=== PATIENT | female | born 2005 | race Caucasian/White ===

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

== ENCOUNTER 2025-01-05 10:50 | Outpatient (CLI) | payer MEDICAID, SELFPAY ==
--- NOTE | 2025-01-05 10:45 | US_ITS ---
PROCEDURE: US OB FOLLOW UP CLINICAL INDICATION: placental location and growth COMPARISON: US US OB /MATERNAL DETAIL from 11/10/2024 US US OB FOLLOW UP from 11/16/2024 US US OB TRANSVAGINAL from 01/05/2025 FINDINGS: Transabdominal sonographic images of the pelvis were obtained. The following parameters are obtained: From her established due date she is 28weeks 3days Viable fetus in the cephalic presentation with an anterior placenta grade 1. Transabdominally the placenta appeared to overlie the internal cervical os. When seen transvaginally the placenta was 7.4 cm away from the internal cervical os. There is a separate dictation for the transvaginal ultrasound. The cervix measures 4.68 cm heart rate: 142bpm bpm. Average ultrasound age 29 weeks 5 days Estimated weight 1379 grams, 3 lb 1 oz BPD: 28weeks 5days, 45 percentile HC: 29weeks 2days, 44 percentile AC: 30weeks 2days, 90 percentile FL: 28weeks 1day, 27 percentile HC/AC: 1.03 FL/BPD: 0.74 FL/AC: 0.2 Growth percentile: Amniotic fluid index: 73 No obvious anomalies evident. profile seen, stomach, bladder, kidneys, three-vessel cord, appear normal. IMPRESSION: 1. Viable fetus in the cephalic presentation with an anterior placenta grade 1. Initially the placenta seen to cover the internal os. A separate transvaginal ultrasound revealed that the placenta was well away from the cervix. 2. Subjectively the fluid appears to be within normal limits. 3. There has been good interval growth with the fetus currently 73rd percentile. The abdominal circumference is 2 weeks ahead. Suggest follow-up for accelerated growth. 4. Limited anatomical scan appears normal. Dictated by: Marcos Kern MD 01/06/2025 06:54 Marcos Kern MD in [facility] 01/06/2025 06:54
--- NOTE | 2025-01-05 10:58 | US_ITS ---
PROCEDURE: US OB TRANSVAGINAL CLINICAL INDICATION: cervical length check COMPARISON: US US OB /MATERNAL DETAIL from 11/10/2024 US US OB FOLLOW UP from 11/16/2024 US US OB FOLLOW UP from 01/05/2025 FINDINGS: Transvaginal sonographic images of the pelvis were obtained. From her last menstrual period she is 28weeks 3days. Viable fetus within the uterine cavity in the cephalic presentation with an anterior placenta grade 1. A previous transabdominal ultrasound today showed that the placenta was overlying the internal cervical os. Transvaginally the placenta has moved away from the internal os after emptying the bladder. The placenta measures 7.4 cm from the internal cervical os. There is no evidence of vascularity near the internal cervical os. The cervix measures 3.90-4.05 cm in length transvaginally. IMPRESSION: 1. Fetus in the cephalic presentation with an anterior placenta grade 1. 2. And earlier transabdominal exam today revealed that the placenta was overlying the internal cervical os. When the patient's bladder was emptied and transvaginal approach was used, the placenta was 7.4 cm away from the internal cervical os. There was no evidence of vascularity near the cervical os. 3. The cervix measures 3.90-4.05 cm in length. Dictated by: Marcos Kern MD 01/06/2025 07:00 Marcos Kern MD in [facility] 01/06/2025 07:00
[2025-01-05 12:47] LABS: Hematocrit 28.4 % (37.0-47.0); Hemoglobin 8.5 g/dL (12.2-16.2); Immature Granulocytes % 0.7 %; Mean Corpuscular HGB Conc 29.9 g/dL (31.8-35.4); Mean Corpuscular Hemoglobin 23.3 pg (27.0-31.2); Mean Corpuscular Volume 77.8 fl (81-99); Nucleated Red Blood Cells % 0 %; Platelet Count 194 K/mm3 (142-424); Red Blood Count 3.65 M/mm3 (4.20-5.40); Red Cell Distribution Width-SD 41.3 fL; White Blood Count 8.5 K/mm3 (4.5-13.0)
[2025-01-05 12:57] LABS: Glucose 1 Hour 108 mg/dL (74-100)
[2025-01-05 15:09] LABS: Ferritin 5.38 ng/ml (6.24-137)
[2025-01-05 15:32] LABS: RPR W/RFX Titers Nonreactive (Nonreactive)
== END 2025-01-05 23:59 | disposition home or self-care (01) ==
PROVIDERS: PCP Family Medicine; Visit Provider Obstetrics & Gynecology
DX: O36.63X0 Maternal care for excessive fetal growth, third trimester, not applicable or unspecified (principal); O99.513 Diseases of the respiratory system complicating pregnancy, third trimester; O99.013 Anemia complicating pregnancy, third trimester; J45.909 Unspecified asthma, uncomplicated; D64.9 Anemia, unspecified; Z3A.28 28 weeks gestation of pregnancy; Z36.86 Encounter for antenatal screening for cervical length
CPT/HCPCS: 36415; 76816; 76817; 82728; 82947; 85025; 86592

== ENCOUNTER 2025-01-10 11:08 | Outpatient (CLI) | payer MEDICAID, SELFPAY ==
[2025-01-10 11:21] VITALS: BMI 30.4
[2025-01-10 11:35] LABS: Microscopic, Urine URINE MICROSCOPIC (MICROSCOPIC)
[2025-01-10 11:39] LABS: Bilirubin,Urine Negative (Negative); Color,Urine YELLOW (Yellow); Glucose,Urine (UA) Negative (Negative); Ketones,Urine Negative (Negative); Leukocyte Esterase,Urine Negative (Negative); PH,Urine 6.0 (5.0-8.5); Protein,Urine Negative (Negative); Specific Gravity, Urine 1.020 (1.005-1.030); Urobilinogen,Urine 0.2 EU/dl (0.2)
[2025-01-10 11:53] LABS: Amorphous Sediment,Urine 1+ /lpf; Bacteria,Urine 1+ /lpf
[2025-01-10] MEDS: LACTATED RINGERS 1000ML 1,000 ML 999 ML IV (11:58)
[2025-01-10 12:07] VITALS: BP 125/69; PULSE 95; RESP 17; TEMP 36.9; O2SAT 97; BMI 30.4
== END 2025-01-10 13:50 | disposition home or self-care (01) ==
LOC: OBOUT 11:11 → OB 11:12
PROVIDERS: PCP Family Medicine; Visit Provider Obstetrics & Gynecology
DX: O99.013 Anemia complicating pregnancy, third trimester (principal); Z3A.28 28 weeks gestation of pregnancy
CPT/HCPCS: 59025; 81001; 96360; 99212; G0463; J7120

== ENCOUNTER 2025-01-22 11:20 | Outpatient (CLI) | payer MEDICAID, SELFPAY ==
[2025-01-22 11:40] VITALS: BP 132/59; PULSE 90; RESP 17; TEMP 36.7; O2SAT 99
[2025-01-22] MEDS: IRON SUCROSE COMPLEX 200 MG in 0.9 % SODIUM CHLORIDE 100 ML 220 MG IV (11:40)
[2025-01-22 12:15] VITALS: BP 137/77; PULSE 89; RESP 20; TEMP 36.6; O2SAT 95
== END 2025-01-22 12:24 | disposition home or self-care (01) ==
LOC: INF 11:22
PROVIDERS: PCP Family Medicine; Visit Provider Obstetrics & Gynecology
DX: O99.019 Anemia complicating pregnancy, unspecified trimester (principal); D64.9 Anemia, unspecified; Z3A.00 Weeks of gestation of pregnancy not specified
CPT/HCPCS: 96365; J1756

== ENCOUNTER 2025-01-29 11:25 | Outpatient (CLI) | payer MEDICAID, SELFPAY ==
[2025-01-29 11:47] VITALS: BP 141/66; PULSE 80; RESP 20; TEMP 36.6; O2SAT 99
[2025-01-29] MEDS: IRON SUCROSE COMPLEX 200 MG in 0.9 % SODIUM CHLORIDE 100 ML 220 MG IV (11:47)
[2025-01-29 12:23] VITALS: BP 134/60; PULSE 87; RESP 18
== END 2025-01-29 12:35 | disposition home or self-care (01) ==
LOC: INF 11:30
PROVIDERS: PCP Family Medicine; Visit Provider Obstetrics & Gynecology
DX: O99.019 Anemia complicating pregnancy, unspecified trimester (principal); D64.9 Anemia, unspecified; Z3A.00 Weeks of gestation of pregnancy not specified
CPT/HCPCS: 96365; J1756

== ENCOUNTER 2025-02-04 10:15 | Outpatient (CLI) | payer MEDICAID, SELFPAY ==
--- NOTE | 2025-02-04 10:15 | US_ITS ---
PROCEDURE: US OB BIOPHYSICAL PROFILE CLINICAL INDICATION: accelerated growth COMPARISON: US US OB /MATERNAL DETAIL from 11/10/2024 US US OB FOLLOW UP from 11/16/2024 US US OB FOLLOW UP from 01/05/2025 FINDINGS: Transabdominal sonographic images of the uterus were obtained. From her established due date she is 32weeks 5days. The following parameters are obtained: Viable Fetus in the cephalic presentation with an anterior placenta grade 2. There is an inhomogeneous area of thickness noted retroplacental. It measures up to 8 cm in size. Possible contraction. Average ultrasound age is 33weeks 4days Estimated weight 2,325g, 5 lb 2 oz The cervix measures 3.54 cm in length Measurements: heart Rate = 155bpm BPD = 32weeks 6days, 46 percentile HC = 33weeks 5days, 37 percentile AC = 35weeks 1day, 97 percentile FL = 32weeks 4days, 32 percentile HC/AC is 0.97 FL/BPD is 0.77 FL/AC is 0.2 80 percentile Amniotic fluid index: 8.91cm, MVP 5.68 cm Qualitative AFV:2 Breathing movements: 2 Gross Body Movements: 2 Tone: 2 Biophysical profile score: 8 No obvious anomalies evident.Kidneys, stomach, bladder, four-chamber heart, three-vessel cord appear normal. IMPRESSION: 1. Viable fetus within the uterine cavity with an anterior placenta grade 2. 2. There is an in homogeneous, vascular area retroplacental. This could be a uterine contraction. 3. The fluid is within normal limits with an amniotic fluid index 8.91 cm, MVP 5.68 cm. 4. Biophysical profile is 8/8 with good breathing movement and movement seen. 5. There has been good interval growth with the fetus currently 80th percentile. The abdominal circumference is 2 weeks ahead. Suggest repeat scan in 4 weeks for growth. 6. Limited anatomical scan appears normal. Dictated by: Marcos Kern MD 02/05/2025 08:22 Marcos Kern MD in [facility] 02/05/2025 08:22
[2025-02-04 11:18] VITALS: BP 127/91; PULSE 78; RESP 20; TEMP 37; O2SAT 99
[2025-02-04] MEDS: SODIUM CHLORIDE 0.9% 10ML FLUSH SYRINGE 10 ML IV (11:18)
[2025-02-04] MEDS: IRON SUCROSE COMPLEX 200 MG in 0.9 % SODIUM CHLORIDE 100 ML 220 MG IV (11:18)
[2025-02-04 12:00] VITALS: BP 108/60; PULSE 82; RESP 20; O2SAT 99
== END 2025-02-04 23:59 | disposition home or self-care (01) ==
LOC: RAD 10:16 → INF 10:55
PROVIDERS: PCP Family Medicine; Visit Provider Obstetrics & Gynecology
DX: O36.60X0 Maternal care for excessive fetal growth, unspecified trimester, not applicable or unspecified (principal); O99.019 Anemia complicating pregnancy, unspecified trimester; Z3A.00 Weeks of gestation of pregnancy not specified
CPT/HCPCS: 76816; 76819; 96365; J1756

== ENCOUNTER 2025-02-05 09:28 | Outpatient (CLI) | payer MEDICAID, SELFPAY | END 2025-02-05 23:59 | disposition home or self-care (01) | LOC: LAB.DROPOF 02-09 09:29 | PROVIDERS: PCP Family Medicine; Visit Provider Obstetrics & Gynecology | DX: O26.899 Other specified pregnancy related conditions, unspecified trimester (principal); N89.8 Other specified noninflammatory disorders of vagina | CPT/HCPCS: 87491; 87529; 87591; 87661; 87798; 87801 ==

== ENCOUNTER 2025-02-11 11:18 | Outpatient (CLI) | payer MEDICAID, SELFPAY ==
[2025-02-11 11:28] VITALS: BP 125/73; PULSE 88; RESP 16; TEMP 36.4; O2SAT 99
[2025-02-11] MEDS: IRON SUCROSE COMPLEX 200 MG in 0.9 % SODIUM CHLORIDE 100 ML 220 MG IV (11:28)
[2025-02-11] MEDS: SODIUM CHLORIDE 0.9% 10ML FLUSH SYRINGE 10 ML IV (11:28)
[2025-02-11 12:08] VITALS: BP 147/73; PULSE 89; RESP 16; TEMP 36.4; O2SAT 99
== END 2025-02-11 23:59 | disposition home or self-care (01) ==
LOC: INF 11:21
PROVIDERS: PCP Family Medicine; Visit Provider Obstetrics & Gynecology
DX: O99.019 Anemia complicating pregnancy, unspecified trimester (principal); Z3A.00 Weeks of gestation of pregnancy not specified
CPT/HCPCS: 96365; J1756

== ENCOUNTER 2025-02-18 14:00 | Outpatient (CLI) | payer MEDICAID, SELFPAY ==
[2025-02-18 14:20] VITALS: BP 133/71; PULSE 75; RESP 17
[2025-02-18] MEDS: IRON SUCROSE COMPLEX 200 MG in 0.9 % SODIUM CHLORIDE 100 ML 220 MG IV (14:20)
[2025-02-18 14:50] VITALS: BP 122/63; PULSE 83; RESP 16
== END 2025-02-18 23:59 | disposition home or self-care (01) ==
LOC: INF 14:01
PROVIDERS: PCP Family Medicine; Visit Provider Obstetrics & Gynecology
DX: O99.019 Anemia complicating pregnancy, unspecified trimester (principal); Z3A.00 Weeks of gestation of pregnancy not specified
CPT/HCPCS: 96365; J1756

== ENCOUNTER 2025-02-18 16:42 | Outpatient (CLI) | payer MEDICAID, SELFPAY ==
[2025-02-18 17:00] VITALS: BP 136/84
[2025-02-18 17:02] VITALS: BMI 70.4
[2025-02-18 17:15] VITALS: BP 148/52
[2025-02-18 17:25] LABS: Hematocrit 32.5 % (37.0-47.0); Hemoglobin 9.9 g/dL (12.2-16.2); Immature Granulocytes % 0.4 %; Mean Corpuscular HGB Conc 30.5 g/dL (31.8-35.4); Mean Corpuscular Hemoglobin 24.8 pg (27.0-31.2); Mean Corpuscular Volume 81.5 fl (81-99); Nucleated Red Blood Cells % 0 %; Platelet Count 186 K/mm3 (142-424); Red Blood Count 3.99 M/mm3 (4.20-5.40); Red Cell Distribution Width-SD 68.8 fL; White Blood Count 7.4 K/mm3 (4.5-13.0)
[2025-02-18 17:30] VITALS: BP 126/73
[2025-02-18 17:39] LABS: Alanine Aminotransferase 16 U/L (12-78); Anion Gap 13.6 mEq/L (5-15); Aspartate Amino Transferase 20 U/L (14-36); Blood Urea Nitrogen 4 mg/dl (7-17); Calcium 8.9 mg/dl (8.4-10.2); Carbon Dioxide 17 mmol/L (22.0-30.0); Chloride 108 mmol/L (98-107); Creatinine Clearance Estimated 194 mL/min (50-200); Creatinine,Serum 0.40 mg/dl (0.52-1.04); Estimated Glomerular Filt Rate 203 ml/min (>60); GFR (African American) 246 ML/MIN (>60); Glucose 124 mg/dl (74-100); Potassium 3.6 mmoL/L (3.5-5.1); Sodium 135 mmol/L (136-145); Uric Acid 4.1 mg/dl (2.5-6.2)
[2025-02-18 17:43] LABS: Activated Partial Thrombo Time 27.6 seconds (22.8-30.6); Fibrinogen 354 mg/dL (229.9-363.5); INR 0.98 (0.9-1.1); Prothrombin Time 10.9 seconds (10.1-12.5)
[2025-02-18 17:45] VITALS: BP 130/77
== END 2025-02-18 17:59 | disposition home or self-care (01) ==
LOC: OBOUT 16:43 → OB 16:44
PROVIDERS: PCP Family Medicine; Visit Provider Obstetrics & Gynecology
DX: O36.8130 Decreased fetal movements, third trimester, not applicable or unspecified (principal); Z3A.34 34 weeks gestation of pregnancy
CPT/HCPCS: 59025; 80048; 84450; 84460; 84550; 85025; 85384; 85610; 85730; 99212; G0463

== ENCOUNTER 2025-02-19 16:05 | Outpatient (CLI) | payer MEDICAID, SELFPAY ==
[2025-02-19 17:13] LABS: Total Volume,Urine 1700 mL (600-1600)
[2025-02-19 17:32] LABS: Total Protein 24 Hour,Urine 289 mg/24 hr (40-90)
== END 2025-02-19 23:59 | disposition home or self-care (01) ==
LOC: LAB 16:05
PROVIDERS: PCP Family Medicine; Visit Provider Obstetrics & Gynecology
DX: O13.9 Gestational [pregnancy-induced] hypertension without significant proteinuria, unspecified trimester (principal); Z3A.00 Weeks of gestation of pregnancy not specified
CPT/HCPCS: 84155

== ENCOUNTER 2025-02-22 10:45 | Outpatient (CLI) | payer MEDICAID, SELFPAY | END 2025-02-22 23:59 | disposition home or self-care (01) | LOC: LAB.DROPOF 02-23 01:36 | PROVIDERS: PCP Obstetrics & Gynecology; Visit Provider Obstetrics & Gynecology | DX: O13.3 Gestational [pregnancy-induced] hypertension without significant proteinuria, third trimester (principal) | CPT/HCPCS: 86403 ==

== ENCOUNTER 2025-02-25 09:56 | Outpatient (CLI) | payer MEDICAID, SELFPAY ==
--- NOTE | 2025-02-25 10:00 | US_ITS ---
PROCEDURE: US OB BIOPHYSICAL PROFILE CLINICAL INDICATION: BPP COMPARISON: US US OB /MATERNAL DETAIL from 11/10/2024 US US OB FOLLOW UP from 11/16/2024 US US OB FOLLOW UP from 01/05/2025 US US OB TRANSVAGINAL from 01/05/2025 US US OB BIOPHYSICAL PROFILE from 02/04/2025 FINDINGS: Transabdominal sonographic images of the uterus were obtained. From her established due date she is 35weeks 5days. The following parameters are obtained: Viable Fetus in the cephalic presentation with an anterior placenta grade 2. The vascular area seen on the previous ultrasound is no longer seen today. Cervix measures 3.15 cm in length. Measurements: heart Rate = 142bpm Amniotic fluid index: 10.29cm, MVP 6.07 cm Qualitative AFV:2 Breathing movements: 2 Gross Body Movements: 2 Tone: 2 Biophysical profile score: 8 No obvious anomalies evident.Kidneys, profile, stomach, bladder, three-vessel cord appear normal. IMPRESSION: 1. Viable fetus in the cephalic presentation with an anterior placenta grade 2. 2. The previously described vascular area adjacent to the placenta is no longer seen today. 3. The fluid is within normal limits with an amniotic fluid index 10.29 cm, MVP 6.07 cm. 4. Biophysical profile is 8/8 with good breathing movement and movement seen. 5. Limited anatomical scan appears normal. Dictated by: Marcos Kern MD 02/26/2025 05:39 Marcos Kern MD in OV 02/26/2025 05:39
== END 2025-02-25 23:59 | disposition home or self-care (01) ==
LOC: RAD 09:56
PROVIDERS: PCP Family Medicine; Visit Provider Obstetrics & Gynecology
DX: O13.3 Gestational [pregnancy-induced] hypertension without significant proteinuria, third trimester (principal); O26.893 Other specified pregnancy related conditions, third trimester; O99.013 Anemia complicating pregnancy, third trimester; N89.8 Other specified noninflammatory disorders of vagina; D64.9 Anemia, unspecified; Z3A.35 35 weeks gestation of pregnancy
CPT/HCPCS: 76819

== ENCOUNTER 2025-03-05 10:17 | Outpatient (CLI) | payer MEDICAID, SELFPAY ==
--- NOTE | 2025-03-05 10:15 | US_ITS ---
PROCEDURE: US OB BIOPHYSICAL PROFILE CLINICAL INDICATION: BPP and Growth COMPARISON: US US OB /MATERNAL DETAIL from 11/10/2024 US OB FOLLOW UP from 11/16/2024 US OB FOLLOW UP from 01/05/2025 US OB TRANSVAGINAL from 01/05/2025 US OB BIOPHYSICAL PROFILE from 02/04/2025 US OB BIOPHYSICAL PROFILE from 02/25/2025 FINDINGS: Transabdominal sonographic images of the uterus were obtained. From her established due date she is 36weeks 6days. The following parameters are obtained: Viable Fetus in the cephalic presentation with an anterior placenta grade 2. Average ultrasound age is 37weeks 0 days Estimated weight 3,213g, 7 lb 1 oz The cervix measures 4.57 cm in length Measurements: heart Rate = 139bpm BPD = 37weeks 5days, 82 percentile HC = 36weeks 2days, 13 percentile AC = 38weeks 5days, 95 percentile FL = 35weeks 2days, 13 percentile HC/AC is 0.93 FL/BPD is 0.74 FL/AC is 0.2 71 percentile Amniotic fluid index: 13.85cm, MVP 6.47 cm Qualitative AFV:2 Breathing movements: 2 Gross Body Movements: 2 Tone: 2 Biophysical profile score: 8 No obvious anomalies evident.Kidneys, stomach, bladder, four-chamber heart, three-vessel cord appear normal. IMPRESSION: 1. Viable fetus in the cephalic presentation with an anterior placenta grade 2. 2. The fluid is within normal limits with an amniotic fluid index 13.85 cm, MVP 6.47 cm. 3. Biophysical profile is 8/8 with good breathing movement and movement seen. 4. There has been good interval growth with the fetus currently 71st percentile. The abdominal circumference is 2 weeks ahead and 95th percentile. 5. Limited anatomical scan appears normal. Dictated by: Marcos eKrn MD 03/06/2025 08:29 Marcos Kern MD in OV 03/06/2025 08:29
== END 2025-03-05 23:59 | disposition home or self-care (01) ==
LOC: RAD 10:18
PROVIDERS: PCP Family Medicine; Visit Provider Obstetrics & Gynecology
DX: O47.03 False labor before 37 completed weeks of gestation, third trimester (principal); Z3A.36 36 weeks gestation of pregnancy
CPT/HCPCS: 76816; 76819

== ENCOUNTER 2025-03-07 19:58 | Inpatient (IN) | payer MEDICAID, SELFPAY ==
[2025-03-07 20:02] VITALS: BMI 31.9
[2025-03-07 20:16] VITALS: BP 139/80; PULSE 84; RESP 16; TEMP 36.8; O2SAT 99; BMI 31.9
[2025-03-07 20:49] LABS: Hematocrit 32.1 % (37.0-47.0); Hemoglobin 10.3 g/dL (12.2-16.2); Immature Granulocytes % 0.6 %; Mean Corpuscular HGB Conc 32.1 g/dL (31.8-35.4); Mean Corpuscular Hemoglobin 26.1 pg (27.0-31.2); Mean Corpuscular Volume 81.3 fl (81-99); Nucleated Red Blood Cells % 0 %; Platelet Count 180 K/mm3 (142-424); Red Blood Count 3.95 M/mm3 (4.20-5.40); Red Cell Distribution Width-SD 69.1 fL; White Blood Count 6.2 K/mm3 (4.5-13.0)
[2025-03-07 20:55] LABS: Albumin Level 3.5 g/dl (3.5-5.0); Chloride 106 mmol/L (98-107); Potassium 3.5 mmoL/L (3.5-5.1); Sodium 135 mmol/L (136-145)
[2025-03-07 20:58] LABS: Alanine Aminotransferase 15 U/L (12-78); Albumin/Globulin Ratio 1.3 (1.1-1.8); Alkaline Phosphatase 142 U/L (38-126); Anion Gap 11.5 mEq/L (5-15); Aspartate Amino Transferase 21 U/L (14-36); Bilirubin,Total 0.3 mg/dl (0.2-1.3); Blood Urea Nitrogen 4 mg/dl (7-17); Calcium 8.7 mg/dl (8.4-10.2); Carbon Dioxide 21 mmol/L (22.0-30.0); Creatinine Clearance Estimated 299 mL/min (50-200); Creatinine,Serum 0.40 mg/dl (0.52-1.04); Estimated Glomerular Filt Rate 203 ml/min (>60); GFR (African American) 246 ML/MIN (>60); Globulin 2.8 g/dL (1.3-3.2); Glucose 104 mg/dl (74-100); Total Protein,Serum 6.3 g/dl (6.3-8.2)
[2025-03-08] MEDS: DEXTROSE 5%-LACTATED RINGERS 1,000 ML 125 ML IV ×2 (05:24→12:43)
[2025-03-08] MEDS: LACTATED RINGERS 1000ML 1,000 ML 500 ML IV (05:24)
[2025-03-08] MEDS: OXYTOCIN/RINGERS LACTATE 30 UNITS/500 ML BAG IV (05:32)
[2025-03-08] MEDS: ONDANSETRON 4MG/2ML VIAL 4 MG IV ×2 (07:59→20:30)
--- NOTE | 2025-03-08 08:48 | HMH.PHAINT1 ---
Pharmacy Intervention Comments: MEDICATION RECONCILIATION COMPLETED ON PATIENT USING EXTERNAL FILL HISTORY FROM PHARMACY. -MARTHA CORNEJO, MAGUED
[2025-03-08 08:55] LABS: Microscopic, Urine URINE MICROSCOPIC (MICROSCOPIC)
[2025-03-08 09:29] LABS: Bilirubin,Urine Negative (Negative); Color,Urine YELLOW (Yellow); Glucose,Urine (UA) Negative (Negative); Ketones,Urine Negative (Negative); Leukocyte Esterase,Urine Negative (Negative); PH,Urine 7.0 (5.0-8.5); Protein,Urine Negative (Negative); Specific Gravity, Urine 1.010 (1.005-1.030); Urobilinogen,Urine 0.2 EU/dl (0.2)
[2025-03-08 09:44] LABS: Bacteria,Urine Trace /lpf; Calcium Oxalate Crystals,Urine 1+ /lpf
[2025-03-08 10:09] VITALS: TEMP 36.9
--- NOTE | 2025-03-08 10:29 | P.HP_ITS ---
OB - H&P: HPI Antepartum History of Present Illness Chief complaint: Gestational hypertension History of present illness: Ms Carolina Whalen is a 20 yo at 37w2d who presents to [facility] L&D for scheduled induction of labor secondary to gestational hypertension. She has had good care. Gestational hypertension diagnosed on 02/18/25. PIH labs within normal limits. 24 hour urine protein was 289 on 02/19/25. She has monitored her blood pressure at home with BP ranging from mild to normotensive at times. No headaches or vision changes. Baby is active. GBS negative. History of Present Criteria for establishing EDC:: based on 1st trimester US only care: good care Ultrasounds: normal mid trimester US Obstetrical complications: gestational hypertension Medical complications: none Labs Blood type: O (+) positive Rubella: immune RPR/VDRL: nonreactive GBS status: negative HBsAG: negative [facility] Disclaimer: The information contained in this section may have been updated after the patient was seen, as this information can be updated by other users. Medical History Gestational hypertension Encounter for supervision of other normal , second trimester Shortness of breath Dizziness History of asthma Asthma affecting , antepartum Palpitations Teen Surgical History History of appendectomy Family History Other No significant family history Social History (Updated 03/07/25 @ 21:45 by Angelika Alaniz RN) Smoking Status: Never smoker alcohol intake: never substance use type: denies use current occupational status: employed Travel in the last 8 weeks?: None do you feel safe at home: Yes victim of physical abuse: No victim of emotional abuse: No victim of sexual abuse: No Have you lived/traveled outside US in past 30 days?: No Contact w/someone who lives/traveled outside US past 30 days?: No Exposure to someone with infectious disease in past 14 days?: No Do you have a fever (greater than 100.4 F or 38 C)?: No Have you tested positive for COVID-19?: No Exposed to someone with COVID-19 in past 14 days?: No Do you have a sore throat?: No Do you have a cough?: No Do you have any weakness?: No Do you have any diarrhea?: No Are you experiencing any unusual bleeding?: No Do you have any muscle aches/pain?: No Do you have any abdominal pain?: No Are you experiencing loss of taste or smell?: No Other Medical History Have you received the Flu Vaccine for this season: No Have you received the Pneumonia Vaccine: No Review of Systems Review of Systems Review of systems:: pertinent systems reviewed and negative unless documented below Meds Home Medications and Allergies Home Medications ?Medication ?Instructions ?Recorded ?Confirmed ?Type vits no.126-ferrous fum 1 tab PO DAILY 03/08/25 History 28 mg iron-folic acid 800 mcg tablet (Classic ) albuterol sulfate 90 mcg/actuation 1 inh inhalation QI DP PRN 03/08/25 03/08/25 History aerosol inhaler shortness of breath or wheez ing ondansetron 4 mg disintegrating 4 mg PO Q8HP PRN nause a and 03/08/25 03/08/25 History tablet vomiting New Prescriptions to Start Prescriptions: Allergies Allergy/AdvReac Type Severity Reaction Status Date / Time bee venom protein (honey bee) Allergy Severe Anaphylaxis Verified 03/01/25 13:07 amoxicillin Allergy Other Verified 03/01/25 13:07 Sulfa (Sulfonamide Allergy Other Verified 03/01/25 13:07 Antibiotics) OB - H&P: Exam Physical Exam Vital signs: Temp Pulse Resp BP Pulse Ox O2 Del Method 98.4 F 84 16 139/80 99 Room Air 03/08/25 10:09 03/07/25 20:16 03/07/25 20:16 03/07/25 20:16 03/07/25 20:16 03/07/25 20:16 Constitutional no acute distress and cooperative Routine HEENT Exam Head: Present normocephalic and atraumatic Eye: Absent conjunctivae pink ENT: Present mucous membranes moist Routine Neck Exam Present full ROM Routine Respiratory Exam Present CTA bilaterally and normal respiratory effort Routine Cardiovascular Exam Present RRR Routine Abdominal Exam Present soft (Gravid); Absent tenderness Routine Rectal Exam Patient deferred: visual exam Routine Exam External: Present normal urethra appearance; Absent erythema, tenderness, lesions, lacerations, vulvar erythema or vulvar tenderness Routine Extremities Exam Present edema (+2 bilateral lower extremity edema) and full ROM; Absent calf tenderness Routine Neurological Exam Present alert, moving all extremities and normal speech Routine Psychiatric Exam Present normal affect and cooperative Detailed Labor and Delivery Exam Dilation (cm): 4 Effacement (%): 60 Cervix position: mid station: -3 Consistency: soft Membranes: artificially ruptured Amniotic fluid: clear Baseline heart rate: 130 monitor accelerations: Present monitor decelerations: None intermediate accountant variability: Moderate (11-25) Contraction frequency (min): 8 OB - Results Labs Labs: Short CBC 03/07/25 Range/Units 20:35 WBC 6.2 (4.5-13.0) K/mm3 Hgb 10.3 L (12.2-16.2) g/dL Hct 32.1 L (37.0-47.0) % Plt Count 180 (142-424) K/mm3 BMP 03/07/25 20:35 Sodium 135 L Potassium 3.5 Chloride 106 Carbon Dioxide 21 L BUN 4 L Creatinine 0.40 L Glucose 104 H Calcium 8.7 Liver Function 03/07/25 Range/Units 20:35 Total Bilirubin 0.3 (0.2-1.3) mg/dl AST 21 (14-36) U/L ALT 15 (12-78) U/L Alkaline Phosphatase 142 H (38-126) U/L Albumin 3.5 (3.5-5.0) g/dl Urine 03/08/25 Range/Units 04:50 Urine Color Yellow (Yellow) Urine Appearance Clear (Clear) Urine pH 7.0 (5.0-8.5) Ur Specific [place] 1.010 (1.005-1.030) Urine Protein Negative (Negative) Urine Glucose (UA) Negative (Negative) OB - A/P Antepartum (1) Gestational hypertension: Status: Acute (2) Anemia complicating : Status: Acute (3) Asthma affecting , antepartum: Status: Acute Additional Plan Additional Information:: Admit to L&D for scheduled induction of labor Induction with Pitocin GBS negative Close monitoring Anticipate vaginal delivery
--- NOTE | 2025-03-08 10:56 | EXP.ANES.CKL ---
[facility] Disclaimer: The information contained in this section may have been updated after the patient was seen, as this information can be updated by other users. Medical History Gestational hypertension Encounter for supervision of other normal , second trimester Shortness of breath Dizziness History of asthma Asthma affecting , antepartum Palpitations Teen Surgical History History of appendectomy Family History Other No significant family history Social History Smoking Status: Never smoker alcohol intake: never substance use type: denies use current occupational status: employed Travel in the last 8 weeks?: None do you feel safe at home: Yes victim of physical abuse: No victim of emotional abuse: No victim of sexual abuse: No Have you lived/traveled outside US in past 30 days?: No Contact w/someone who lives/traveled outside US past 30 days?: No Exposure to someone with infectious disease in past 14 days?: No Do you have a fever (greater than 100.4 F or 38 C)?: No Have you tested positive for COVID-19?: No Exposed to someone with COVID-19 in past 14 days?: No Do you have a sore throat?: No Do you have a cough?: No Do you have any weakness?: No Do you have any diarrhea?: No Are you experiencing any unusual bleeding?: No Do you have any muscle aches/pain?: No Do you have any abdominal pain?: No Are you experiencing loss of taste or smell?: No [facility] Anesthesia Checklist Patient Identification Patient Identification: Arm Band and Verbal (Name & ) Structural Data Admitted From: Inpatient Planned Operative Procedure/s: labor epidural Consent for Planned Operative Procedure(s) Verified: Yes Verified Documents: Surgical Consent and History and Physical Additional verifications Patient : Yes Anesthesia Reactions: No Airway Assessment Mallampati Score:: Class II Dentition: Good Dentition Neurological Assessment Level of Consciousness: Awake, Alert and Appropriate Hx Seizures: No Numbness or tingling in extremities: No Anesthesia Plan Anesthesia Risk discussed: Yes Anesthesia Plan: Verified ASA Class: II Anesthesia Type: Epidural
[2025-03-08] MEDS: ACETAMINOPHEN 500MG TAB 1000 MG PO ×2 (16:29→23:28)
[2025-03-08] MEDS: OXYTOCIN/RINGERS LACTATE 30 UNITS/500 ML BAG 40 UNITS IV (19:35)
--- NOTE | 2025-03-08 19:59 | EXP.DN ---
Delivery Note Delivery Date:: 03/08/25 Delivery Time:: 19:32 Anesthesia Type: Epidural Was labor medically induced?: Yes Induction method: per pitocin protocol Gestational age (weeks): 37 delivered prior to 39 weeks?: Yes Justification for early elective delivery:: Gestational Hypertension Gender: Male at 1 minute: 7 at 5 minutes: 9 LAC or MLE?: LAC Delivery Procedure:: Mom complete with epidural. Pushed for approximately two contractions. Head delivered spontaneously over intact perineum in NELLY position. Nuchal cord x 1 delivered through. Anterior shoulder delivered with gentle downward pressure. Posterior shoulder and remainder of body delivered spontaneously. Baby placed on maternal abdomen, mouth and nares bulb suctioned, warmed/dried and stimulated. Delayed cord clamping was performed for 60 seconds. Cord was clamped and cut by mom. Cord blood was obtained. Placenta delivered spontaneously and intact. Placenta will be sent to pathology for review. Second degree perineal laceration repaired with 3-0 Vicryl. Hemostasis noted. Mom and baby were skin to skin and doing well after delivery. Live male baby (baby's name is Elia Connelly) APGARs 7 (1 min), 9 (5 min) EBL 100 mL Placental Delivery Description: Spontaneous
[2025-03-08] MEDS: IBUPROFEN 400 MG TABLET 800 MG PO (20:07)
[2025-03-08] MEDS: BENZOCAINE-MENTHOL SPRAY 56GM CAN TP (20:08)
[2025-03-08] MEDS: LANOLIN CREAM 40GM TP (20:08)
[2025-03-08] MEDS: WITCH HAZEL 40 PADS/BOX 1 EACH TP (20:09)
[2025-03-09] MEDS: IBUPROFEN 400 MG TABLET 800 MG PO ×2 (03:48→15:23)
[2025-03-09 07:30] LABS: Hematocrit 31.7 % (37.0-47.0); Hemoglobin 10.0 g/dL (12.2-16.2); Immature Granulocytes % 0.3 %; Mean Corpuscular HGB Conc 31.5 g/dL (31.8-35.4); Mean Corpuscular Hemoglobin 26.0 pg (27.0-31.2); Mean Corpuscular Volume 82.3 fl (81-99); Nucleated Red Blood Cells % 0 %; Platelet Count 188 K/mm3 (142-424); Red Blood Count 3.85 M/mm3 (4.20-5.40); Red Cell Distribution Width-SD 70.1 fL; White Blood Count 9.3 K/mm3 (4.5-13.0)
[2025-03-09 08:33] VITALS: BP 126/59; PULSE 79; RESP 17; O2SAT 100
[2025-03-09] MEDS: ACETAMINOPHEN 500MG TAB 1000 MG PO ×3 (08:34→21:27)
[2025-03-09 09:57] LABS: RPR W/RFX Titers Nonreactive (Nonreactive)
--- NOTE | 2025-03-09 10:26 | EXP.ACUTE.PN ---
Subjective *Date: 03/09/25 *Time: 10:26 Interval history: She is doing very well 1 day post vaginal delivery. She is eating and drinking and ambulating. Her lochia is normal. Medical Exam Vital signs and Labs for Last 24 Hours: Vital Signs Pulse Resp BP Pulse Ox O2 Del Method 03/09/25 08:33 79 17 126/59 L 100 Room Air Intake and Output 03/08/25 03/09/25 03/09/25 19:59 03:59 11:59 Intake Total 1002.484 / 1002.484 Balance 1002.484 / 1002.484 Intake: Intake, Total IV Amount 1002.484 / 1002.484 Dextrose 5%-Lactated Ringers 1, 914.583 / 914.583 000 ml @ 125 mls/hr IV .Q8H TREVIN Rx#:[id number] Oxytocin/Ringers Lactate 30 87.901 / 87.901 units In 500 ml @ 2 mls/hr IV . Q25H ONE Rx#:[id number] Laboratory Results - last 24 hr 03/07/25 20:35: RPR w/Rflx to Titer Nonreactive 03/09/25 05:01: WBC 9.3 D, RBC 3.85 L, Hgb 10.0 L, Hct 31.7 L, MCV 82.3, MCH 26.0 L, MCHC 31.5 L, RDW 23.8 H, Plt Count 188, MPV 11.5 H, Neut % (Auto) 68.5, Lymph % (Auto) 22.1, [place] % (Auto) 8.0, Eos % (Auto) 0.8, Baso % (Auto) 0.3, Neut # (Auto) 6.4, Lymph # (Auto) 2.1, [place] # (Auto) 0.8, Eos # (Auto) 0.1, Baso # (Auto) 0.0 I & O for Labs for Last 24 Hours: Intake & Output 03/06/25 03/07/25 03/08/25 03/09/25 11:59 11:59 11:59 11:59 Intake Total 1034.866 / 2615.780 4678.484 / 1002.484 Balance 1034.866 / 2766.690 7032.484 / 1002.484 Weight 186 lb Head: Present atraumatic ENT: Present normal exam Neck: Present normal inspection Respiratory: Present normal respiratory effort; Absent accessory muscle use Assessment and Plan *Assessment and plan (1) Gestational hypertension: Status: Acute Qualifiers: Trimester: third trimester Qualified Code(s): O13.3 - Gestational [-induced] hypertension without significant proteinuria, third trimester Category: Medical Code(s): O13.9 - Gestational [-induced] hypertension without significant proteinuria, unspecified trimester (2) Normal delivery at term: Status: Acute Category: Medical Code(s): O80 - Encounter for full-term uncomplicated delivery Plan 1. She is doing very well today. 2. She will be discharged home tomorrow.
[2025-03-09] MEDS: WITCH HAZEL 40 PADS/BOX 1 EACH TP (17:15)
[2025-03-09 20:19] VITALS: BP 136/74; PULSE 70; RESP 18; TEMP 36.8; O2SAT 100
[2025-03-09] MEDS: SENNA 8.6MG TABLET 8.6 MG PO (21:27)
[2025-03-10 00:30] VITALS: BP 122/71; PULSE 65; O2SAT 100
[2025-03-10 04:38] VITALS: BP 115/69; PULSE 58; RESP 17; TEMP 36.7; O2SAT 100
[2025-03-10] MEDS: IBUPROFEN 400 MG TABLET 800 MG PO (04:39)
[2025-03-10 09:30] VITALS: BP 121/80; PULSE 101; RESP 17; TEMP 36.7; O2SAT 100
--- NOTE | 2025-03-10 10:17 | P.DS_ITS ---
General Admission date:: 03/07/25 Discharge date: 03/10/25 HPI HPI HPI: Ms Carolina Whalen is a 20 yo at 37w2d who presents to [facility] L&D for scheduled induction of labor secondary to gestational hypertension. She has had good care. Gestational hypertension diagnosed on 02/18/25. PIH labs within normal limits. 24 hour urine protein was 289 on 02/19/25. She has monitored her blood pressure at home with BP ranging from mild to normotensive at times. No headaches or vision changes. Baby is active. GBS negative. Hospital Course Hospital Course Hospital Course: She was admitted for induction of labor at term and progressed to full dilation. Mom complete with epidural. Pushed for approximately two contractions. Head delivered spontaneously over intact perineum in NELLY position. Nuchal cord x 1 delivered through. Anterior shoulder delivered with gentle downward pressure. Posterior shoulder and remainder of body delivered spontaneously. Baby placed on maternal abdomen, mouth and nares bulb suctioned, warmed/dried and stimulated. Delayed cord clamping was performed for 60 seconds. Cord was clamped and cut by mom. Cord blood was obtained. Placenta delivered spontaneously and intact. Placenta will be sent to pathology for review. Second degree perineal laceration repaired with 3-0 Vicryl. Hemostasis noted. Mom and baby were skin to skin and doing well after delivery. Live male baby (baby's name is Elia Connelly) APGARs 7 (1 min), 9 (5 min) EBL 100 mL She has done well and has remained afebrile throughout hospitalization. She is eating and drinking and ambulating. She is breast- feeding. Her lochia is normal. Should be discharged home today to follow-up with Dr. Landeros in approximately 2 weeks time. Her is planning a vasectomy. She will continue with her vitamins and iron. She was given usual instructions with respect to limiting her activity and sexual activity. Her condition on discharge is stable and improved. Exam Data for Last 24 hours Vital signs and Labs for Last 24 Hours: Temp Pulse Resp BP Pulse Ox O2 Del Method 98.1 F 58 L 17 115/69 100 Room Air 03/10/25 04:38 03/10/25 04:38 03/10/25 04:38 03/10/25 04:38 03/10/25 04:38 03/10/25 04:38 I & O for Last 24 hours: Intake & Output 03/07/25 03/08/25 03/09/25 03/10/25 11:59 11:59 11:59 11:59 Intake Total 1034.866 / 3878.788 0447.717 / 1879.717 Balance 1034.866 / 0584.035 2712.717 / 1879.717 Weight 186 lb Constitutional Constitutional: no acute distress *Routine HEENT Exam Head: Present normocephalic *Routine Neck Exam Neck: Present full ROM *Routine Respiratory Exam Respiratory: Present normal respiratory effort; Absent accessory muscle use DS: Diagnosis Discharge Diagnosis (1) Gestational hypertension: Status: Acute Code(s): O13.9 - Gestational [-induced] hypertension without significant proteinuria, unspecified trimester Qualifiers: Trimester: third trimester Qualified Code(s): O13.3 - Gestational [-induced] hypertension without significant proteinuria, third trim jeffery (2) Normal delivery at term: Status: Acute Code(s): O80 - Encounter for full-term uncomplicated delivery Meds Home Medications and Allergies Home Medications ?Medication ?Instructions ?Recorded ?Confirmed ?Type vits no.126-ferrous fum 1 tab PO DAILY 03/08/25 History 28 mg iron-folic acid 800 mcg tablet (Classic ) albuterol sulfate 90 mcg/actuation 1 inh inhalation QI DP PRN 03/08/25 03/08/25 History aerosol inhaler shortness of breath or wheez ing ondansetron 4 mg disintegrating 4 mg PO Q8HP PRN nause a and 03/08/25 03/08/25 History tablet vomiting New Prescriptions to Start Prescriptions: Allergies Allergy/AdvReac Type Severity Reaction Status Date / Time bee venom protein (honey bee) Allergy Severe Anaphylaxis Verified 03/01/25 13:07 amoxicillin Allergy Other Verified 03/01/25 13:07 Sulfa (Sulfonamide Allergy Other Verified 03/01/25 13:07 Antibiotics) Discharge Plan Disposition Patient Disposition: Home, Self-Care Discharge Order Discharge Orders: Discharge Order (Routine); Ordered 03/10/25 Ordered By: Marcos Kern Follow up Plan Prescriptions/Medication Reconciliation: Continued Classic 28 mg iron- 800 mcg tablet 1 tab PO DAILY albuterol sulfate 90 mcg/actuation HFA aerosol inhaler 1 inh inhalation QIDP PRN (Reason: shortness of breath or wheezing) ondansetron 4 mg tablet,disintegrating 4 mg PO Q8HP PRN (Reason: nausea and vomiting) Problem Reconciliation Problems Reviewed?: Yes Patient Discharge Instructions ACTIVITY: No heavy lifting DIET: continue same diet Print Language: Upper Sorbian Providers Primary Care Provider: Provider,Referral Admit Provider: Ronit Landeros Attending Provider: Ronit Landeros
== END 2025-03-10 11:23 | disposition home or self-care (01) | DRG 807 ==
PROVIDERS: Admitting Provider Obstetrics & Gynecology; Visit Provider Obstetrics & Gynecology
DX: O13.4 Gestational [pregnancy-induced] hypertension without significant proteinuria, complicating childbirth (principal); Z37.0 Single live birth; Z3A.37 37 weeks gestation of pregnancy; O69.81X0 Labor and delivery complicated by cord around neck, without compression, not applicable or unspecified; O70.1 Second degree perineal laceration during delivery; O99.02 Anemia complicating childbirth; O99.513 Diseases of the respiratory system complicating pregnancy, third trimester; J45.909 Unspecified asthma, uncomplicated; Z88.2 Allergy status to sulfonamides; Z88.0 Allergy status to penicillin; Z91.030 Bee allergy status; Z23 Encounter for immunization
CPT/HCPCS: 36415; 51702; 59025; 80053; 81001; 85025; 86592; 86850; 94761; C1758; J2003; J2405; J2795; J3010; J7120; J7121